=== PATIENT | female | born 1995 | race Caucasian/White ===

== ENCOUNTER 2018-10-17 12:49 | Emergency (ER) | payer MEDICAID ==
[~2018-10-17] VITALS: Ht 154.9 cm; Wt 49.0 kg
[~2018-10-17 12:49] MED LIST: CEPH500C2 PO
[2018-10-17 13:31] VITALS: BP 116/73
[2018-10-17 15:29] LABS: CLARITY URINE CLEAR (CLEAR); COLOR URINE YELLOW (YELLOW); KETONES URINE TRACE (NEGATIVE); LEUKOCYTE ESTERASE URINE NEGATIVE (NEGATIVE); NITRITE URINE NEGATIVE (NEGATIVE); OCCULT BLOOD URINE NEGATIVE (NEGATIVE); PH URINE 6.5 (4.5-8.0); PROTEIN URINE NEGATIVE (NEGATIVE); SPECIFIC GRAVITY URINE 1.035 (1.005-1.030)
== END 2018-10-17 16:08 | disposition home or self-care (01) ==
LOC: ER 12:49
DX: Z32.01 Encounter for pregnancy test, result positive (principal)
CPT/HCPCS: 81003; 81025; 99283

== ENCOUNTER 2018-10-29 18:08 | Emergency (ER) | payer MEDICAID ==
[~2018-10-29] VITALS: Ht 154.9 cm; Wt 50.0 kg
[2018-10-29 19:19] VITALS: BP 114/67
== END 2018-10-29 22:10 | disposition left against medical advice (07) ==
LOC: ER 18:08
DX: Z53.21 Procedure and treatment not carried out due to patient leaving prior to being seen by health care provider (principal)